=== PATIENT | female | born 1965 | race Caucasian/White ===

== ENCOUNTER 2021-11-01 06:31 | Day surgery (SDC) | payer OTHER ==
[~2021-11-01] VITALS: Ht 142.2 cm; Wt 78.5 kg
[2021-11-01] MEDS ORDERED: MEPERIDINE 100 MG INJ. 100 MG/ML VIAL ONE (06:59)
[2021-11-01] MEDS ORDERED: MIDAZOLAM HCL 5 MG/5 ML VIAL ONE (07:00)
[2021-11-01 12:47] VITALS: BP_SYST 158
== END 2021-11-01 11:13 | disposition home or self-care (01) ==
LOC: SDS 06:31 → SMU 07:08 → SDS 11:13
PROVIDERS: ATTEND Internal Medicine Gastroenterology
DX: K62.5 Hemorrhage of anus and rectum (principal); D12.8 Benign neoplasm of rectum; K57.30 Diverticulosis of large intestine without perforation or abscess without bleeding; R03.0 Elevated blood-pressure reading, without diagnosis of hypertension; R19.7 Diarrhea, unspecified; Z20.822 Contact with and (suspected) exposure to COVID-19; Z79.899 Other long term (current) drug therapy
CPT/HCPCS: 36415; 45380; 82962; 87426; 88305; 99152; G0378; J2175; J2250